=== PATIENT | male | born 1955 | race Caucasian/White ===

== ENCOUNTER 2016-10-30 00:07 | Inpatient (IN) | payer OTHER ==
[~2016-10-30] VITALS: Ht 182.9 cm; Wt 69.0 kg
[~2016-10-30 00:07] MED LIST: ALBUTEROL MDI; AMIT10TA PO; BISA5TAB5 PO; CARB100T4 PO; FLUO10CA7 PO; OMEP40CA6 PO; TRAZ100T15 PO; VALP250C59 PO
[2016-10-30] MEDS ORDERED: SODIUM CHLORIDE 0.9% 1,000ML IVBOLUS ONE (00:30)
[2016-10-30] MEDS ORDERED: SODIUM CHLORIDE FLUSH 10ML SYR IVF ONE (00:30)
[2016-10-30 00:58] LABS: ASPARTATE AMINO TRANSFERASE 18 U/L (15-37); BLOOD UREA NITROGEN 25 mg/dL (7-18)
[2016-10-30] MEDS ORDERED: KETOROLAC 30 MG/1 ML IV ONE (01:00)
[2016-10-30] MEDS ORDERED: MORPHINE SULFATE 4 MG/ML, 1ML IVPush ONE (01:00)
[2016-10-30 01:05] LABS: IS PT STATUS REG ER OR PRE ER? YES
[2016-10-30] MEDS ORDERED: MORPHINE SULFATE 4 MG/ML, 1ML ONE (01:19)
[2016-10-30] MEDS ORDERED: KETOROLAC 30 MG/1 ML ONE (01:20)
[2016-10-30 03:28] LABS: DAU SCREEN DISCLAIMER
[2016-10-30] MEDS ORDERED: TRAZODONE 50MG TABLET PO PRN (03:30)
[2016-10-30] MEDS ORDERED: hydrALAzine 20 MG/ML, 1ML IVPush PRN (03:30)
[2016-10-30] MEDS ORDERED: DOCUSATE 100 MG CAPSULE PO PRN (03:30)
[2016-10-30] MEDS ORDERED: ACETAMINOPHEN 325 MG TABLET PO PRN (03:30)
[2016-10-30] MEDS ORDERED: POLYETHYLENE GLYCOL 17 GM PACKET PO PRN (03:30)
[2016-10-30] MEDS ORDERED: BISACODYL 10 MG SUPP PR PRN (03:30)
[2016-10-30] MEDS ORDERED: KETOROLAC 30 MG/1 ML IVPush PRN (03:30)
[2016-10-30] MEDS: SODIUM CHLORIDE 0.9% 1,000 ML IV SCH ×2 (05:21→10:49)
[2016-10-30] MEDS: NICOTINE 14MG/24 HR PATCH.TD24 TD SCH (05:22)
[2016-10-30] MEDS: ENOXAPARIN 40 MG/0.4 ML SQ SCH (05:23)
[2016-10-30 08:04] VITALS: BP 153/85
[2016-10-30] MEDS: CARBAMAZEPINE 100 MG TAB.CHEW PO SCH ×4 (08:46→22:24)
[2016-10-30 13:21] VITALS: BP 126/71
[2016-10-30 18:43] VITALS: BP 159/81
[2016-10-31 04:15] VITALS: BP 157/83
[2016-10-31 04:25] VITALS: BP 157/83
[2016-10-31 04:44] LABS: ASPARTATE AMINO TRANSFERASE 12 U/L (15-37); BLOOD UREA NITROGEN 14 mg/dL (7-18)
[2016-10-31] MEDS: ENOXAPARIN 40 MG/0.4 ML SQ SCH (06:01)
[2016-10-31] MEDS: NICOTINE 14MG/24 HR PATCH.TD24 TD SCH (06:01)
[2016-10-31] MEDS: CARBAMAZEPINE 100 MG TAB.CHEW PO SCH ×2 (06:01→10:48)
[2016-10-31 08:02] VITALS: BP 151/88
[2016-10-31] MEDS ORDERED: DIVA125T3 PO (08:30)
[2016-10-31] MEDS ORDERED: DIVALPROEX 125 MG TABLET.DR PO SCH (09:00)
[2016-10-31] MEDS ORDERED: PNEUMOCOCCAL 23 VACCINE IM-VACC ONE (12:00)
== END 2016-10-31 14:02 | disposition home or self-care (01) | DRG 917 ==
LOC: ED 01:56 → EDIP 02:19 → 3NW 05:01
PROVIDERS: ADMIT Internal Medicine
DX: T42.6X1A Poisoning by other antiepileptic and sedative-hypnotic drugs, accidental (unintentional), initial encounter (principal); G92 Toxic encephalopathy; E87.1 Hypo-osmolality and hyponatremia; F17.210 Nicotine dependence, cigarettes, uncomplicated; G40.909 Epilepsy, unspecified, not intractable, without status epilepticus; E86.0 Dehydration; G89.11 Acute pain due to trauma; R41.0 Disorientation, unspecified; S40.212A Abrasion of left shoulder, initial encounter; W18.30XA Fall on same level, unspecified, initial encounter; J44.9 Chronic obstructive pulmonary disease, unspecified; Y93.01 Activity, walking, marching and hiking; R62.7 Adult failure to thrive; G43.C0 Periodic headache syndromes in child or adult, not intractable; F32.9 Major depressive disorder, single episode, unspecified; Y92.89 Other specified places as the place of occurrence of the external cause; Y99.8 Other external cause status
CPT/HCPCS: 36415; 70450; 71010; 80053; 80164; 80307; 81003; 82140; 83735; 84484; 85025; 85610; 85730; 90732; 93005; 96374; 96375; J1650; J1885; J7030

== ENCOUNTER 2017-05-20 15:53 | Emergency (ER) | payer OTHER ==
[~2017-05-20] VITALS: Ht 182.9 cm; Wt 82.0 kg
[~2017-05-20 15:53] MED LIST changes: +DIVA125T3 PO
[2017-05-20] MEDS ORDERED: SODIUM CHLORIDE 0.9% 1,000 ML IV ONE (16:17)
[2017-05-20] MEDS ORDERED: SODIUM CHLORIDE 0.9% 1,000ML IVBOLUS ONE (16:30)
[2017-05-20] MEDS ORDERED: SODIUM CHLORIDE FLUSH 10ML SYR IVF ONE (16:30)
[2017-05-20] MEDS ORDERED: LORazepam 2 MG/ML, 1ML IVPush ONE (16:30)
[2017-05-20 17:02] LABS: BASOPHILS # (AUTO) 0.03 x10^3/uL (0-0.1); BASOPHILS % (AUTO) 1 % (0-1); EOSINOPHILS # (AUTO) 0.05 x10^3/uL (0-0.4); EOSINOPHILS % (AUTO) 1 % (1-7); LYMPHOCYTES # (AUTO) 1.05 x10^3/uL (1-3.4); LYMPHOCYTES % (AUTO) 22 % (22-44); MD NO; MEAN CORPUSCULAR HEMOGLOBIN 30.4 pg (27.5-34.5); MEAN CORPUSCULAR HGB CONC 33.3 g/dL (33.2-36.2); MEAN CORPUSCULAR VOLUME 91.1 fL (81-97); MEAN PLATELET VOLUME 7.7 fL (7.4-10.4); MONOCYTES # (AUTO) 0.25 x10^3/uL (0.2-0.8); MONOCYTES % (AUTO) 5 % (2-9); NEUTROPHILS # (AUTO) 3.32 x10^3/uL (1.8-6.8); NEUTROPHILS % (AUTO) 71 % (42-75); PLATELET COUNT 237 x10^3/uL (130-400); RED BLOOD COUNT 4.41 x10^6/uL (4.38-5.82); RED CELL DISTRIBUTION WIDTH 14.7 % (9.4-14.8)
[2017-05-20 17:05] LABS: ALANINE AMINOTRANSFERASE 19 U/L (12-78); ALBUMIN 3.1 g/dL (3.4-5.0); ANION GAP 5 mmol/L (5-15); CHLORIDE 104 mmol/L (98-107); CREATININE 0.69 mg/dL (0.7-1.3)
[2017-05-20] MEDS ORDERED: LORazepam 2 MG/ML, 1ML ONE (17:06)
[2017-05-20 17:08] LABS: ALKALINE PHOSPHATASE 82 U/L (45-117); BILIRUBIN,TOTAL 0.1 mg/dL (0.2-1.0); TOTAL PROTEIN 6.8 g/dL (6.4-8.2)
[2017-05-20] MEDS ORDERED: ACETAMINOPHEN 500 MG TABLET ONE (17:14)
[2017-05-20 17:24] LABS: MICROSCOPIC INDICATED
[2017-05-20] MEDS ORDERED: ACETAMINOPHEN 500 MG TABLET PO ONE (17:30)
[2017-05-20 17:36] LABS: CULTURE INDICATED? NO
[2017-05-20 18:35] VITALS: BP 140/83
== END 2017-05-20 18:37 | disposition home or self-care (01) ==
LOC: ED 17:16
DX: R56.9 Unspecified convulsions (principal); J15.9 Unspecified bacterial pneumonia; J44.0 Chronic obstructive pulmonary disease with (acute) lower respiratory infection
CPT/HCPCS: 36415; 70450; 71045; 80053; 80164; 81001; 85025; 93005; 96361; 96374; 99285; J2060; J7030

== ENCOUNTER 2017-08-30 19:45 | Emergency (ER) | payer OTHER ==
[2017-08-30] MEDS ORDERED: MAALOX/HYOSCYAMINE/LIDOCAINE 45 ML BTL ONE (20:04)
[2017-08-30] MEDS ORDERED: PROMETHAZINE 25 MG/ML, 1ML ONE (20:04)
[2017-08-30] MEDS ORDERED: FAMOTIDINE 20 MG/2 ML ONE (20:04)
[2017-08-30] MEDS ORDERED: TIOT18CA INH (21:41)
== END 2017-08-30 19:57 ==
LOC: ED 19:51
DX: Z02.9 Encounter for administrative examinations, unspecified (principal)

== ENCOUNTER 2017-10-21 15:23 | Emergency (ER) | payer OTHER ==
[~2017-10-21] VITALS: Ht 182.9 cm; Wt 82.0 kg
[~2017-10-21 15:23] MED LIST changes: +TIOT18CA INH
[2017-10-21 16:07] LABS: ANION GAP 6 mmol/L (5-15); CALCIUM 9.2 mg/dL (8.5-10.1); CHLORIDE 105 mmol/L (98-107); CREATININE 0.59 mg/dL (0.7-1.3)
[2017-10-21 16:11] LABS: BASOPHILS # (AUTO) 0.04 x10^3/uL (0-0.1); BASOPHILS % (AUTO) 1 % (0-1); EOSINOPHILS # (AUTO) 0.11 x10^3/uL (0-0.4); EOSINOPHILS % (AUTO) 2 % (1-7); LYMPHOCYTES # (AUTO) 1.63 x10^3/uL (1-3.4); LYMPHOCYTES % (AUTO) 26 % (22-44); MD NO; MEAN CORPUSCULAR HEMOGLOBIN 30.2 pg (27.5-34.5); MEAN CORPUSCULAR HGB CONC 33.1 g/dL (33.2-36.2); MEAN CORPUSCULAR VOLUME 91.1 fL (81-97); MEAN PLATELET VOLUME 7.7 fL (7.4-10.4); MONOCYTES # (AUTO) 0.41 x10^3/uL (0.2-0.8); MONOCYTES % (AUTO) 7 % (2-9); NEUTROPHILS # (AUTO) 4.04 x10^3/uL (1.8-6.8); NEUTROPHILS % (AUTO) 65 % (42-75); PLATELET COUNT 272 x10^3/uL (130-400); RED BLOOD COUNT 4.13 x10^6/uL (4.38-5.82); RED CELL DISTRIBUTION WIDTH 16.1 % (9.4-14.8)
[2017-10-21] MEDS ORDERED: DIVALPROEX 250 MG TAB.ER.24H PO ONE (18:00)
[2017-10-21 19:12] VITALS: BP 145/79
== END 2017-10-21 19:14 | disposition home or self-care (01) ==
LOC: ED 19:06
DX: G40.919 Epilepsy, unspecified, intractable, without status epilepticus (principal); D53.9 Nutritional anemia, unspecified; J44.9 Chronic obstructive pulmonary disease, unspecified
CPT/HCPCS: 36415; 80048; 80164; 85025; 93005; 99285

== ENCOUNTER 2019-05-28 17:41 | Emergency (ER) | payer OTHER ==
[~2019-05-28] VITALS: Ht 177.8 cm; Wt 54.5 kg
[~2019-05-28 17:41] MED LIST changes: -DIVA125T3 PO; +DIVA125T31 PO; +OMEP40CA42 PO; -OMEP40CA6 PO; +TRAZ-137 PO; -TRAZ100T15 PO
--- NOTE | 2019-05-28 18:21 | NUR ---
BIB EMS AFTER PT HAD WITNESSED SZ LASTING 1 MIN WHILE IN BED. NO FALL. NO INJURY. HAD URINARY INCONTINENCE DURING SZ. DID NOT BITE TONGUE. WAS POST ICTAL ON EMS ARRIVAL. PT NOW AOX4. LAST SZ "A LONG TIME AGO". ON DIVALPROEX FOR SZ. VS PA BP 152/72, HR 103, 97% RA, BS 90. EKG COMPLETED. MONITORS APPLIED. PIV INITIATED. WARM BLANKET PROVIDED. ERP DR. POLANCO AT BEDSIDE. SZ PRECAUTIONS IN PLACE.
[2019-05-28 18:29] LABS: MICROSCOPIC INDICATED
[2019-05-28 18:36] LABS: ALBUMIN 3.4 g/dL (3.4-5.0); ANION GAP 9 mmol/L (5-15); CALCIUM 8.9 mg/dL (8.5-10.1); CHLORIDE 104 mmol/L (98-107); CREATININE 0.93 mg/dL (0.7-1.3)
--- NOTE | 2019-05-28 18:40 | NUR ---
PT RESTING ON GURNEY. NADN. MACK.
[2019-05-28 18:41] LABS: CULTURE INDICATED? YES
[2019-05-28 18:45] LABS: BASOPHILS # (AUTO) 0.02 x10^3/uL (0-0.1); BASOPHILS % (AUTO) 0 % (0-1); EOSINOPHILS # (AUTO) 0.05 x10^3/uL (0-0.4); EOSINOPHILS % (AUTO) 1 % (1-7); LYMPHOCYTES # (AUTO) 1.63 x10^3/uL (1-3.4); LYMPHOCYTES % (AUTO) 25 % (22-44); MD NO; MEAN CORPUSCULAR HEMOGLOBIN 30.7 pg (27.5-34.5); MEAN CORPUSCULAR VOLUME 93.1 fL (81-97); MEAN PLATELET VOLUME 7.9 fL (7.4-10.4); MONOCYTES # (AUTO) 0.37 x10^3/uL (0.2-0.8); MONOCYTES % (AUTO) 6 % (2-9); NEUTROPHILS # (AUTO) 4.37 x10^3/uL (1.8-6.8); NEUTROPHILS % (AUTO) 68 % (42-75); PLATELET COUNT 248 x10^3/uL (130-400); RED BLOOD COUNT 4.42 x10^6/uL (4.38-5.82); RED CELL DISTRIBUTION WIDTH 14.8 % (9.4-14.8)
--- NOTE | 2019-05-28 18:49 | NUR ---
BEDSIDE REPORT GIVEN TO KRIS EDWARDS RN.
[2019-05-28] MEDS ORDERED: DIVALPROEX 250 MG TABLET.DR PO ONE (19:00)
--- NOTE | 2019-05-28 19:05 | NUR ---
MED REQUEST TUBED TO THE LAB
[2019-05-28] MEDS ORDERED: DIVALPROEX 500 MG TABLET.DR ONE (19:19)
[2019-05-28 19:21] VITALS: BP 107/58
[2019-05-28] MEDS ORDERED: CEFDINIR 300 MG CAPSULE ONE (19:37)
[2019-05-28] MEDS ORDERED: CEFDINIR 300 MG CAPSULE PO ONE (20:00)
== END 2019-05-28 19:55 | disposition home or self-care (01) ==
LOC: ED 18:29
DX: G40.309 Generalized idiopathic epilepsy and epileptic syndromes, not intractable, without status epilepticus (principal); N39.0 Urinary tract infection, site not specified; R94.31 Abnormal electrocardiogram [ECG] [EKG]; J44.9 Chronic obstructive pulmonary disease, unspecified; F17.200 Nicotine dependence, unspecified, uncomplicated
CPT/HCPCS: 36415; 71045; 80048; 80164; 80175; 81001; 82040; 83605; 85025; 87086; 93005; 99284

== ENCOUNTER 2019-05-29 09:38 | Emergency (ER) | payer OTHER ==
[~2019-05-29] VITALS: Ht 182.9 cm; Wt 82.0 kg
--- NOTE | 2019-05-29 09:45 | NUR ---
PT BIB EMS. CAUGHTER WITNESSED SZ THIS AM. PT HAS HX OF SAME. NO OTHER COMPLAINTS. SZ PADS IN PLACE.
--- NOTE | 2019-05-29 09:45 | NUR ---
PER EMS BS 107
[2019-05-29 10:57] LABS: MEAN CORPUSCULAR HEMOGLOBIN 30.3 pg (27.5-34.5); MEAN CORPUSCULAR HGB CONC 32.7 g/dL (33.2-36.2); MEAN CORPUSCULAR VOLUME 92.7 fL (81-97); MEAN PLATELET VOLUME 7.4 fL (7.4-10.4); PLATELET COUNT 254 x10^3/uL (130-400); RED BLOOD COUNT 4.32 x10^6/uL (4.38-5.82); RED CELL DISTRIBUTION WIDTH 14.9 % (9.4-14.8)
[2019-05-29 11:06] LABS: ALANINE AMINOTRANSFERASE 15 U/L (12-78); ALBUMIN 3.1 g/dL (3.4-5.0); ANION GAP 4 mmol/L (5-15); CALCIUM 8.5 mg/dL (8.5-10.1); CHLORIDE 104 mmol/L (98-107)
[2019-05-29 11:14] LABS: ALKALINE PHOSPHATASE 73 U/L (45-117); BILIRUBIN,TOTAL 0.2 mg/dL (0.2-1.0); TOTAL PROTEIN 6.7 g/dL (6.4-8.2)
[2019-05-29 11:18] LABS: BASOPHILS # (AUTO) 0.03 x10^3/uL (0-0.1); BASOPHILS % (AUTO) 1 % (0-1); EOSINOPHILS # (AUTO) 0.07 x10^3/uL (0-0.4); EOSINOPHILS % (AUTO) 2 % (1-7); LYMPHOCYTES # (AUTO) 1.29 x10^3/uL (1-3.4); LYMPHOCYTES % (AUTO) 33 % (22-44); MD SCAN; MONOCYTES # (AUTO) 0.31 x10^3/uL (0.2-0.8); MONOCYTES % (AUTO) 8 % (2-9); NEUTROPHILS # (AUTO) 2.21 x10^3/uL (1.8-6.8); NEUTROPHILS % (AUTO) 57 % (42-75)
[2019-05-29 11:35] LABS: MICROSCOPIC NOT IND
[2019-05-29 11:38] LABS: CULTURE INDICATED? NO
--- NOTE | 2019-05-29 12:49 | NUR ---
PT SLEEPING, SZ PADS IN PLACE. DAUGHTER AT BEDSIDE
[2019-05-29] MEDS ORDERED: PHENYTOIN SODIUM 1,000 MG in SODIUM CHLORIDE 0.9% 100 ML IV ONE (13:00)
[2019-05-29] MEDS ORDERED: FILTER 0.22 MICRON IV ONE (13:00)
--- NOTE | 2019-05-29 13:23 | NUR ---
REPORT FROM CIRO RODRIGUEZ. PT RECLINED IN BED. NAD NOTED AT THIS TIME, PT DENIES PAIN. SZ PADS IN PLACE, DAUGHTER AT BEDSIDE. IV INFUSION UNDERWAY.
[2019-05-29] MEDS ORDERED: AMPICILLIN/SULBACTAM 3 GM in SODIUM CHLORIDE 0.9% 100 ML IV ONE (13:30)
[2019-05-29] MEDS ORDERED: VANCOMYCIN PER PHARMACY MC ONE (13:30)
[2019-05-29] MEDS ORDERED: VANCOMYCIN 1,600 MG in SODIUM CHLORIDE 0.9% 250 ML IV ONE (14:00)
[2019-05-29 14:31] VITALS: BP 115/66
== END 2019-05-29 14:48 | disposition home or self-care (01) ==
LOC: ED 10:17
DX: G40.309 Generalized idiopathic epilepsy and epileptic syndromes, not intractable, without status epilepticus (principal); J44.9 Chronic obstructive pulmonary disease, unspecified; F17.210 Nicotine dependence, cigarettes, uncomplicated
CPT/HCPCS: 36415; 80053; 80164; 80185; 81003; 85025; 96365; 99283; J1165

== ENCOUNTER 2019-07-13 17:30 | Emergency (ER) | payer SELFPAY ==
[~2019-07-13] VITALS: Ht 185.4 cm; Wt 81.8 kg
[~2019-07-13 17:30] MED LIST changes: +FLUO10CA14 PO; -FLUO10CA7 PO; -TRAZ-137 PO; +TRAZ-175 PO
--- NOTE | 2019-07-13 18:06 | NUR ---
BREAK RN: THIS IS A 64 YO MALE WHO PRESENTS TO THE ER VIA AMBULANCE WITH DAUGHTER. PT HAD A WITNESSED SEIZURE BY DAUGHTER WITH HX OF SAME. DAUGHTER UNSURE OF HOW LONG SEIZURE LASTED. PER EMS, PT WAS POST-ICTAL WHEN THEY ARRIVED. PT DENIES ORAL TRAUMA OR URINATING SELF. NO TRAUMA NOTED BY RN. PT DENIES PAIN/NEEDS. PT ON CONT BP AND O2 MONITORS. PT AND DAUGHTER AWARE WE ARE WAITING FOR ERMD EVAL. CALL LIGHT WITHIN REACH.
--- NOTE | 2019-07-13 18:29 | NUR ---
BREAK RN: EDSON SOMMER AT BEDSIDE FOR EVAL.
[2019-07-13 18:59] LABS: BASOPHILS # (AUTO) 0.01 x10^3/uL (0-0.1); BASOPHILS % (AUTO) 0 % (0-1); EOSINOPHILS # (AUTO) 0.07 x10^3/uL (0-0.4); EOSINOPHILS % (AUTO) 1 % (1-7); LYMPHOCYTES # (AUTO) 1.33 x10^3/uL (1-3.4); LYMPHOCYTES % (AUTO) 20 % (22-44); MD NO; MEAN CORPUSCULAR HEMOGLOBIN 31.1 pg (27.5-34.5); MEAN CORPUSCULAR HGB CONC 33.1 g/dL (33.2-36.2); MEAN CORPUSCULAR VOLUME 93.8 fL (81-97); MEAN PLATELET VOLUME 8.1 fL (7.4-10.4); MONOCYTES # (AUTO) 0.35 x10^3/uL (0.2-0.8); MONOCYTES % (AUTO) 5 % (2-9); NEUTROPHILS # (AUTO) 4.88 x10^3/uL (1.8-6.8); NEUTROPHILS % (AUTO) 74 % (42-75); PLATELET COUNT 191 x10^3/uL (130-400); RED BLOOD COUNT 4.03 x10^6/uL (4.38-5.82); RED CELL DISTRIBUTION WIDTH 14.5 % (9.4-14.8)
[2019-07-13] MEDS ORDERED: SODIUM CHLORIDE FLUSH 10ML SYR IVF ONE (19:00)
[2019-07-13 19:10] LABS: ALANINE AMINOTRANSFERASE 15 U/L (12-78); ALBUMIN 3.3 g/dL (3.4-5.0); ANION GAP 4 mmol/L (5-15); CALCIUM 9.2 mg/dL (8.5-10.1); CHLORIDE 105 mmol/L (98-107); CREATININE 0.69 mg/dL (0.7-1.3)
--- NOTE | 2019-07-13 19:39 | NUR ---
PT UP TO BR. PT IS CONCERNED THAT HIS HOTEL ROOM WILL BE RENTED OUT AND SOMEONE WILL STEAL HIS BIG SCREEN TV. WANTS TO GO HOME NOW. NOTIFIED.
--- NOTE | 2019-07-13 19:55 | NUR ---
PT UP TO URINATE. PT GETTING UPSET HE WANTS TO LEAVE AND GO HOME NOW. EXPLAINED THAT MD IS WAITING ON LAB RESULTS TO DETERMINE HIS MEDICATION LEVELS TO HELP HIM PREVENT SEIZURES. PT GOES BACK INTO ROOM AND LAYS ON BED.
[2019-07-13 20:18] LABS: ALKALINE PHOSPHATASE 71 U/L (45-117); BILIRUBIN,TOTAL 0.1 mg/dL (0.2-1.0); TOTAL PROTEIN 6.9 g/dL (6.4-8.2)
--- NOTE | 2019-07-13 20:27 | NUR ---
PT AT RN DESK; ASKED HOW SOON HE'LL BE DC'D. INFORMED PT THAT ERP IS AWAITING SOME LAB RESULTS. PT UNWILLING TO WAIT, WANTS TO BE DC'D; WILL NOTIFY ERP.
[2019-07-13] MEDS ORDERED: DIVALPROEX 500 MG TABLET.DR ONE (20:50)
--- NOTE | 2019-07-13 20:55 | NUR ---
JEREMY RN: ASSISTED IN PT CARE. PT MEDICATED PER MAR. AWAITING D/C PAPERWORK. PT AWARE OF POC.
[2019-07-13] MEDS ORDERED: DIVALPROEX 500 MG TABLET.DR PO ONE (21:00)
[2019-07-13 21:09] VITALS: BP 103/67
== END 2019-07-13 21:12 | disposition home or self-care (01) ==
LOC: ED 18:14
DX: G40.309 Generalized idiopathic epilepsy and epileptic syndromes, not intractable, without status epilepticus (principal); F17.210 Nicotine dependence, cigarettes, uncomplicated; J44.9 Chronic obstructive pulmonary disease, unspecified; F17.200 Nicotine dependence, unspecified, uncomplicated
CPT/HCPCS: 36415; 80053; 80156; 80164; 80184; 80185; 83735; 85025; 93005; 99284; 99406